=== PATIENT | male | born 2005 | race Two or more races ===

== ENCOUNTER 2025-08-15 14:54 | Emergency (ER) | payer MEDICAID, SELFPAY ==
[2025-08-15 14:55] VITALS: BMI 28.0
[2025-08-15 15:24] VITALS: BP 136/85; PULSE 76; RESP 18; TEMP 37.1; O2SAT 96
--- NOTE | 2025-08-15 15:29 | PD.EDWOUND ---
ED Wound/Laceration-RME/HPI General Chief Complaint: Wound/Laceration Stated Complaint: HEAD LAC X 2 DAYS Time Seen by Provider: 08/15/25 15:25 Arrival date/time: 08/15/25 14:54 RME / HPI RME / HPI narrative: DR. WOODS MAIN ED EVALUATION: 19 y/o male presents to ED c/o laceration above the left brow s/p alleged fall x last night. Patient states he has applied Vaseline to the affected area and applied a Band-Aid. Denies any visual disturbances. Related Data Home Medications ?Medication ?Instructions ?Recorded ?Confirmed quetiapine 50 mg tablet,extended 300 mg PO QDAY ##0 06/09/14 11/25/17 release 24 hr (Seroquel XR) methylphenidate HCl 10 mg tablet 10 mg PO QAM 11/25/17 11/25/17 (Ritalin) Previous Rx's ?Medication ?Instructions ?Recorded ibuprofen 400 mg tablet 400 mg PO Q8H PRN pain #30 tabs 11/25/17 Allergies Allergy/AdvReac Type Severity Reaction Status Date / Time No Known Allergies Allergy Verified 01/17/19 15:12 Review of Systems Review of Systems Systems Reviewed: All systems reviewed, normal except as documented ED Exam Narrative Physical exam: GENERAL APPEARANCE: alert and oriented x 4, well-developed, well-nourished, no acute distress VITALS: All vitals were reviewed and the pulse ox is 96% on room air, which is normal according to my interpretation. HEENT: normocephalic, 1.5 cm laceration above the left brow with periorbital ecchymosis, no pain on EOMI NECK: supple LUNGS: no respiratory distress, normal effort HEART: good peripheral perfusion ABDOMEN: non distended EXTREMITIES: atraumatic NEUROLOGIC: awake; alert and oriented x4; cranial nerves II-XII grossly intact PSYCHIATRIC: appropriate mood and affect SKIN: warm, dry, normal color; no rashes Course Course Course Narrative: Wound cleansed. Laceration repaired with Dermabond and Steri-strips. Quality Measures none Vital Signs Vital signs: Vital Signs Temperature 98.7 F 08/15/25 15:24 Pulse Rate 76 08/15/25 15:24 Respiratory Rate 18 08/15/25 15:24 Blood Pressure 136/85 H 08/15/25 15:24 Pulse Oximetry (%) 96 08/15/25 15:24 Oxygen Delivery Method Room Air 08/15/25 15:24 Wound / Laceration MDM Narrative MDM Narrative:: Scribe Attestation: Nadia Zepeda, am scribing for and in the presence of Dr. Woods. Provider Notation: Although this document has been carefully reviewed, there may still be some phonetic and other typographical errors. These errors are purely grammatical due to imperfections in the software program and should not be construed in any way to compromise the substance of the patient's medical care during this visit. Patient data External records reviewed:: [facility] previous records (Reviewed prior ED records from 08/09/22. Patient was seen for Concussion without loss of consciousness.) Clinical information provided by:: patient Social determinants that could affect healthcare access:: none Patient has the following chronic illnesses:: None reported How is presenting disease/condition affected by chronic disease/condition?: no chronic disease Evaluation data The following diagnostics were reviewed and interpreted by me:: other (specify) (N/A) Lab and/or radiology exams considered but not ordered:: None Interpretation Summary: N/A Medications / Prescriptions Medications or Prescriptions considered but not ordered:: None Medication administrations:: See above if any Consultations Consultation(s) initiated? (list below): No Diagnosis Wound Differential Diagnosis: laceration, abrasion and avulsion of skin Most likely diagnosis given after review of the tests above:: Laceration Admission Indicated Admission indicated?: not indicated Explain why admission is indicated or not indicated:: Patient does not meet admission criteria. Admission Request Was there a request for admission?: No Disposition Plan Disposition Plan: Discharge Discharge Attestation Discharge Attestation: The patient and all family members were given an opportunity to ask questions and understood the discharge instructions. Discharge instructions specifically effects, indications for sooner follow up or return to the emergency department, and the expected course of current diagnosis. Patient condition: Stable Discharge Plan Plan Patient Disposition: HOME (Self Care) Prescriptions/Referrals Prescriptions/Med Rec: No Action quetiapine [Seroquel XR] 50 MG tablet extended release 24 hr 300 mg PO QDAY Qty: 0 methylphenidate HCl [Ritalin] 10 mg Tablet 10 mg PO QAM ibuprofen 400 mg tablet 400 mg PO Q8H PRN (Reason: pain) Qty: 30 0RF Referrals: No Primary/Family,Physician [Primary Care Provider] - In 1 week Problem List Clinical Impression: Laceration Patient/Caregiver Discharge Instructions Education Materials: ED Laceration Face Skin Glue Ch Print Language: Lithuanian Stand Alone Forms: [facility] Award Info., Patient Portal Info Letter
== END 2025-08-15 17:04 | disposition home or self-care (01) ==
PROVIDERS: Emergency Provider Emergency Medicine
DX: S01.81XA Laceration without foreign body of other part of head, initial encounter (principal); X58.XXXA Exposure to other specified factors, initial encounter
CPT/HCPCS: 12011; 99281